=== PATIENT | male | born 1975 | race Hispanic/Latino ===

== ENCOUNTER 2021-11-26 16:23 | Emergency (ER) | payer SELFPAY ==
[~2021-11-26] VITALS: Ht 177.8 cm; Wt 100.0 kg
[2021-11-26] MEDS ORDERED: KEFLEX500 MG PO (16:47)
[2021-11-26] MEDS ORDERED: CIPROFLOXACN500 MG PO (16:47)
[2021-11-26 17:16] VITALS: BP 168/98
== END 2021-11-26 17:45 | disposition home or self-care (01) | DRG 605 ==
LOC: ED 16:23
DX: S91.331A Puncture wound without foreign body, right foot, initial encounter (principal); W45.0XXA Nail entering through skin, initial encounter; Y93.H9 Activity, other involving exterior property and land maintenance, building and construction